=== PATIENT | male | born 1950 | race Caucasian/White ===

== ENCOUNTER 2017-01-07 13:57 | Inpatient (IN) | payer BC, MEDICARE ==
[~2017-01-07] VITALS: Ht 177.8 cm; Wt 83.9 kg
[2017-01-07] MEDS ORDERED: SOD CHLORIDE 0.9% 1,000 ML IV STA (14:39)
[2017-01-07] MEDS ORDERED: MAGNESIUM SULFATE 2 GM, MULTIVITAMINS 10 ML, THIAMINE 100 MG, FOLIC ACID 1 MG in SOD CH... IV STA (14:39)
[2017-01-07 15:03] LABS: ADD SCAN DIFF NO
--- NOTE | 2017-01-07 15:06 | RADRPT ---
PROCEDURE: XR Chest. CLINICAL INDICATION: Chest pain, altered level of consciousness TECHNIQUE: Single frontal view of the chest was obtained. COMPARISON: None FINDINGS: The heart is within normal limits. The thoracic aorta is calcified. There are mild left lower lobe linear atelectatic changes. The lungs are otherwise clear. There is no pleural effusion or pneumothorax. RPTAT: AA IMPRESSION: Mild left lower lobe linear atelectatic changes. Calcified aorta consistent with atherosclerotic disease. .Nathan Pena MD, MD Date Time Electronically viewed and signed by .Nathan Pena MD, on 01/07/2017 15:06 .S/
[2017-01-07 15:19] LABS: CHLORIDE 105 mmol/L (97-110)
[2017-01-07 15:20] LABS: ALBUMIN 3.8 g/dl (3.3-4.9); POTASSIUM 4.4 mmol/L (3.5-5.1); SODIUM 141 mmol/L (135-144)
[2017-01-07 15:21] LABS: BASOPHIL # 0.1 10^3/ul (0.0-0.1); BASOPHILS % 0.7 % (0.0-2.0); HEMATOCRIT 29.9 % (42.0-52.0); HEMOGLOBIN 10.1 g/dl (14.0-18.0); LYMPHOCYTES # 1.7 10^3/ul (0.8-2.9); LYMPHOCYTES % 21.9 % (15.0-51.0); MEAN CORPUSCULAR HEMOGLOBIN 33.4 pg (29.0-33.0); MEAN CORPUSCULAR HGB CONC 33.8 g/dl (32.0-37.0); MEAN PLATELET VOLUME 10.2 fl (7.4-10.4); MONOCYTE # 0.4 10^3/ul (0.3-0.9); MONOCYTES % 5.2 % (0.0-11.0); NEUTROPHIL # 5.4 10^3/ul (1.6-7.5); NEUTROPHILS % 71.7 % (39.0-77.0); PLATELET COUNT 374 10^3/UL (140-415); RED BLOOD COUNT 3.02 10^6/ul (4.70-6.10); RED CELL DISTRIBUTION WIDTH 13.5 % (11.5-14.5); WHITE BLOOD COUNT 7.5 10^3/ul (4.8-10.8)
[2017-01-07 15:22] LABS: ANION GAP 19 (8-16); CARBON DIOXIDE 21 mmol/L (21-31)
[2017-01-07 15:23] LABS: ALANINE AMINOTRANSFERASE 37 IU/L (13-69); ALBUMIN/GLOBULIN RATIO 1.11; ALKALINE PHOSPHATASE 169 IU/L (42-121); ASPARTATE AMINO TRANSFERASE 53 IU/L (15-46); BILIRUBIN,INDIRECT 0.2 mg/dl (0-1.1); BILIRUBIN,TOTAL 0.2 mg/dl (0.2-1.3); BLOOD UREA NITROGEN 23 mg/dl (7-20); CALCIUM 8.6 mg/dl (8.4-10.2); GLUCOSE 113 mg/dl (70-220); TOTAL PROTEIN 7.2 g/dl (6.1-8.1)
[2017-01-07 15:37] LABS: ACETAMINOPHEN < 10.0 ug/ml (10.0-30.0)
[2017-01-07 15:38] LABS: ETHANOL < 10.0 mg/dl; SALICYLATE < 1.0 mg/dl (5.0-30.0)
[2017-01-07] MEDS ORDERED: LORAZEPAM 2 MG INJ IV ONE ×3 (16:00→22:30)
[2017-01-07] MEDS ORDERED: DIAZEPAM 5 MG/ML SYG IV ONE (16:30)
[2017-01-07 16:34] LABS: ACETONE NEGATIVE (NEGATIVE)
--- NOTE | 2017-01-07 18:20 | RADRPT ---
PROCEDURE: CT brain without contrast CLINICAL INDICATION: Altered level of consciousness TECHNIQUE: A CT of the brain was performed utilizing axial sections from the skull base through th e vertex without contrast. Sagittal and coronal images were also reformatted. The exam CTDIvol = 48. 08 mGy and DLP = 773.57 mGy-cm. COMPARISON: None available FINDINGS: No acute intracranial hemorrhage is identified. There is no mass effect or midline shift. No extra -axial fluid collection is seen. The ventricles and sulci are larger in size and configuration for the patient's provided age of 66 years consistent with advanced generalized atrophy. The density of the brain is within normal limits. Scott-white differentiation is preserved with no findings to sug gest an acute ischemic infarct. The fourth ventricle is midline and there is no density alteration within the juan luis or cerebellum. M oderate atherosclerotic calcification of the vertebral and cavernous internal carotid arteries is no hayes. The osseous structures are unremarkable. The mastoid air cells and visualized paranasal sinuses are clear. RPTAT:HJJR IMPRESSION: Advanced atrophy for the patient's provided age with no evidence of acute intracranial abnormality o r findings to explain the patient's provided history. Physician Nicole Date Time Electronically viewed and signed by Physician Nicole on 01/07/2017 18:20 /
[2017-01-07] MEDS ORDERED: SOD CHLORIDE 0.9% 1,000 ML IV SCH (18:55)
[2017-01-07] MEDS ORDERED: ACETAMINOPHEN 325 MG TAB PO PRN (19:00)
[2017-01-07] MEDS ORDERED: ONDANSETRON 4 MG INJ IV PRN (19:00)
--- NOTE | 2017-01-07 19:06 | ERA ---
ER Documentation Chief Complaint Date/Time DATE: 01/07/17 TIME: 18:57 Chief Complaint EOTH INTAKE, BIB AMBULANCE, STATES DRANK "RUBBING ALCOHOL", AOX2 HPI This is a 66-year-old alcoholic has been abusing alcohol for the past 2 weeks. Apparently the patient drank a bottle of isopropyl rubbing alcohol last night finished it off this morning. The patient has been drinking 1 bottle of vodka a day for the past 2 weeks. Patient has had multiple falls. Patient is a very poor historian and history is from EMS and the family. Family states they are concerned for his safety and his alcohol abuse and are wanting him admitted for withdrawal precautions and possible placement ROS All systems reviewed and are negative except as per history of present illness. Medications Home Meds Unable to Obtain Active Prescriptions or Reported Meds Allergies Allergies: Coded Allergies: No Known Allergy (Unverified , 01/07/17) PMhx/Soc Hx Cardiac Disorders: Yes (HTN) Hx Alcohol Use: Yes Hx Substance Use: No Hx Tobacco Use: Yes Smoking Status: Current every day smoker FmHx Family History: No coronary disease Physical Exam Vitals Vital Signs Date Time Temp Pulse Resp B/P Pulse Ox O2 Delivery O2 Flow Rate FiO2 01/07/17 18:42 70 21 125/64 Room Air 01/07/17 14:07 97.6 78 18 106/53 98 Physical Exam Const: Well-developed, well-nourished Head: Right temporal scalp contusion normocephalic] Eyes: Normal Conjunctiva, PERRLA, EOMI, normal sclera, no nystagmus ENT: Normal External Ears, Nose and Mouth, moist mucus membranes. Neck: Full range of motion. No meningismus, no lymphadenopathy. Resp: Clear to auscultation bilaterally, no wheezing, rhonchi, rales Cardio: Regular rate and rhythm, no murmurs, S1 S2 present Abd: Soft, non tender x 4, non distended. Normal bowel sounds, no guarding or rebound, no pulsitile abdominal masses or bruits Skin: No petechiae or rashes, no ecchymosis , no maculopapular rash Back: No midline or flank tenderness Ext: No cyanosis, or edema, FROM x 4, normal inspection, neurovascularly intact x 4, multiple scrapes and contusions and abrasions to his knees and shins Neur: Awake and alert, STR 5/5 x 4, sensation intact x 4, no focal findings, cerebellum intact Psych: Poor historian limited cooperation patient is having outbursts of yelling and bizarre statements such as "I need to find the door" t Result Diagram: 01/07/17 1440 01/07/17 1440 Results 24 hrs Laboratory Tests Test 01/07/17 14:40 Acetaminophen Level < 10.0ug/ml Acetone Level (Chemistry) NEGATIVE Alanine Aminotransferase (ALT/SGPT) 37IU/L Albumin 3.8g/dl Albumin/Globulin Ratio 1.11 Alkaline Phosphatase 169IU/L Anion Gap 19 Aspartate Amino Transf (AST/SGOT) 53IU/L Basophils # 0.110^3/ul Basophils % 0.7% Blood Urea Nitrogen 23mg/dl Calcium Level 8.6mg/dl Carbon Dioxide Level 21mmol/L Chloride Level 105mmol/L Creatinine 1.50mg/dl Direct Bilirubin 0.00mg/dl Eosinophils # 0.010^3/ul Eosinophils % 0.0% Ethyl Alcohol Level < 10.0mg/dl Globulin 3.40g/dl Glucose Level 113mg/dl Hematocrit 29.9% Hemoglobin 10.1g/dl Indirect Bilirubin 0.2mg/dl Lymphocytes # 1.710^3/ul Lymphocytes % 21.9% Mean Corpuscular Hemoglobin 33.4pg Mean Corpuscular Hemoglobin Concent 33.8g/dl Mean Corpuscular Volume 99.0fl Mean Platelet Volume 10.2fl Monocytes # 0.410^3/ul Monocytes % 5.2% Neutrophils # 5.410^3/ul Neutrophils % 71.7% Nucleated Red Blood Cells # 0.010^3/ul Nucleated Red Blood Cells % 0.0/100WBC Platelet Count 05701^3/UL Potassium Level 4.4mmol/L Red Blood Count 3.0210^6/ul Red Cell Distribution Width 13.5% Salicylates Level < 1.0mg/dl Sodium Level 141mmol/L Total Bilirubin 0.2mg/dl Total Protein 7.2g/dl White Blood Count 7.510^3/ul Current Medications Medications (Trade) Dose Ordered Sig/Nell Route PRN Reason Start Time Stop Time Status Last Admin Dose Admin Sodium Chloride 1,000 ml @ 1,000 mls/hr Q1H STAT IV 01/07/17 14:39 01/07/17 15:38 DC 01/07/17 14:58 Magnesium Sulfate/ Multivitamins/ Thiamine HCl/ Folic Acid/Sodium Chloride (Magnesium Sulfate/Mvi Adult/ Vitamin B1/Folic Acid/NS) 1,015.2 ml @ 500 mls/ hr Q2H2M STAT IV 01/07/17 14:39 01/07/17 16:40 DC 01/07/17 15:20 Lorazepam (Ativan) 1 mg ONCE ONCE IV 01/07/17 16:00 01/07/17 16:01 DC 01/07/17 16:01 Diazepam (Valium) 5 mg ONCE ONCE IV 01/07/17 16:30 01/07/17 16:31 DC 01/07/17 16:09 Procedures/MDM PROCEDURE: CT brain without contrast CLINICAL INDICATION: Altered level of consciousness TECHNIQUE: A CT of the brain was performed utilizing axial sections from the skull base through the vertex without contrast. Sagittal and coronal images were also reformatted. The exam CTDIvol = 48.08 mGy and DLP = 773.57 mGy-cm. COMPARISON: None available FINDINGS: No acute intracranial hemorrhage is identified. There is no mass effect or midline shift. No extra-axial fluid collection is seen. The ventricles and sulci are larger in size and configuration for the patient's provided age of 66 years consistent with advanced generalized atrophy. The density of the brain is within normal limits. Scott-white differentiation is preserved with no findings to suggest an acute ischemic infarct. The fourth ventricle is midline and there is no density alteration within the juan luis or cerebellum. Moderate atherosclerotic calcification of the vertebral and cavernous internal carotid arteries is noted. The osseous structures are unremarkable. The mastoid air cells and visualized paranasal sinuses are clear. RPTAT:HJJR IMPRESSION: Advanced atrophy for the patient's provided age with no evidence of acute intracranial abnormality or findings to explain the patient's provided history. Physician Nicole Date Time Electronically viewed and signed by Physician Nicole on 01/07/2017 18:20 JR/ CC: CLAY REDDY DO PROCEDURE: XR Chest. CLINICAL INDICATION: Chest pain, altered level of consciousness TECHNIQUE: Single frontal view of the chest was obtained. COMPARISON: None FINDINGS: The heart is within normal limits. The thoracic aorta is calcified. There are mild left lower lobe linear atelectatic changes. The lungs are otherwise clear. There is no pleural effusion or pneumothorax. RPTAT: AA IMPRESSION: Mild left lower lobe linear atelectatic changes. Calcified aorta consistent with atherosclerotic disease. .Nathan Pena MD, MD Date Time Electronically viewed and signed by .Nathan Pena MD, MD on 01/07/2017 15: 06 .S/ CC: CLAY REDDY DO EKG: Rate/Rhythm: Normal sinus rhythm heart rate 73, right axis deviation QRS, ST, QT: NORMAL ID, QRS, QT] Impression: NORMAL EKG Spoke with the patient's primary care physician Dr. Finnegan and. He asked me to order a d-dimer and ammonia level. The patient had to get Ativan and Valium intravenously to calm him down. He will need to be admitted for alcohol delirium and observation for isopropyl alcohol ingestion. He is also high risk for alcohol withdrawal Departure Diagnosis: Primary Impression: Alcoholic delirium Condition: Stable CLAY REDDY DO Jan 07, 2017 19:06
[2017-01-07 21:14] LABS: D-DIMER 2647.26 ng/ml (<460)
[2017-01-08 05:34] VITALS: TEMP 97.4
[2017-01-08] MEDS ORDERED: PANTOPRAZOLE 40 MG INJ IV SCH (11:00)
[2017-01-08] MEDS: CHLORDIAZEPOXIDE 5 MG CAP PO SCH ×3 (12:30→22:08)
[2017-01-08] MEDS: THIAMINE 200 MG INJ IM SCH (12:31)
[2017-01-08] MEDS: FOLIC ACID 1 MG TAB PO SCH ×2 (12:32→21:00)
[2017-01-08] MEDS: CYANOCOBALAMIN 500 MCG TAB PO SCH (12:32)
[2017-01-08] MEDS: ENOXAPARIN 100 MG/ML SYG SC SCH (12:38)
[2017-01-08 13:22] LABS: ADD UMIC NO; URINE BILIRUBIN (Dip) NEGATIVE (NEGATIVE); URINE BLOOD (Dip) NEGATIVE (NEGATIVE); URINE COLOR LT. YELLOW (YELLOW); URINE GLUCOSE (Dip) NEGATIVE (NEGATIVE); URINE KETONES (Dip) 15 (NEGATIVE); URINE LEUKOCYTE ESTERASE (Dip) NEGATIVE (NEGATIVE); URINE NITRITE (Dip) NEGATIVE (NEGATIVE); URINE TOTAL PROTEIN (Dip) NEGATIVE (NEGATIVE); URINE UROBILINOGEN (Dip) 0.2 E.U./dL (0.1-1.0)
[2017-01-08 13:30] VITALS: BP 146/74; PULSE 74; RESP 18
[2017-01-08 13:48] LABS: BENZODIAZEPINES Positive (NEGATIVE)
[2017-01-08 14:15] LABS: BARBITURATES Negative (NEGATIVE); CANNABINOIDS Negative (NEGATIVE); COCAINE Negative (NEGATIVE); OPIATES Negative (NEGATIVE)
[2017-01-08 14:17] VITALS: Ht 177.8 cm; Wt 83.9 kg
--- NOTE | 2017-01-08 15:31 | HP ---
Date/Time of Note Date/Time of Note DATE: 01/08/17 TIME: 15:29 Assessment/Plan VTE Prophylaxis VTE Prophylaxis Intervention: anti-embolic stocking, contraindicated, LMWH VTE Contraindication Reason: peripheral vascular disease Lines/Catheters Central line still needed: Yes Urinary Cath still in place: No HPI/ROS Admit Date/Time Admit Date/Time Confusion; S/p alcohol abuse and other substance use including nicotine. PMH/Family/Social Social History Smoking Status: Current some day smoker Exam/Review of Systems Vital Signs Vitals Vital Signs Date Time Temp Pulse Resp B/P Pulse Ox O2 Delivery O2 Flow Rate FiO2 01/08/17 08:14 53 131/70 100 Room Air 01/08/17 07:00 18 01/08/17 05:34 97.4 Intake and Output 01/07/17 01/07/17 01/08/17 15:00 23:00 07:00 Intake Total 160 ml Output Total 120 ml Balance 40 ml Labs Result Diagram: 01/07/17 1440 01/07/17 1440 VEE HUNTLEY MD Jan 08, 2017 15:31
[2017-01-08] MEDS: IPRATROPIUM (NEB) 0.5 MG/2.5 ML AMP HHN SCH ×2 (15:48→21:05)
[2017-01-08] MEDS: ALBUTEROL 0.083% (NEB) 2.5 MG/3 ML AMP HHN SCH ×2 (15:49→21:05)
[2017-01-08 15:50] LABS: IRON 85 ug/dl (35-150)
[2017-01-08 15:59] LABS: TOTAL IRON BINDING CAPACITY 212 ug/dl (241-421)
[2017-01-08 19:58] VITALS: BP 191/88; RESP 20
[2017-01-08] MEDS: NICOTINE (14 MG/24 HR) PATCH TRANSDERM SCH (20:12)
[2017-01-08 20:19] VITALS: BP 160/74; PULSE 58
[2017-01-08] MEDS ORDERED: MEGE40TA PO (20:46)
[2017-01-08] MEDS ORDERED: THIA50TA10 PO (20:46)
[2017-01-08] MEDS ORDERED: TAP5 PO (20:46)
[2017-01-08] MEDS ORDERED: FOLI-49 PO (20:46)
[2017-01-08] MEDS ORDERED: PANT40TA4 PO (20:46)
[2017-01-08] MEDS ORDERED: RIFA550T4 PO (20:46)
[2017-01-08] MEDS ORDERED: MIRT15TA5 PO (20:46)
[2017-01-08] MEDS ORDERED: SPIR100T31 PO (20:46)
[2017-01-08] MEDS ORDERED: LORA1TAB PO (20:47)
[2017-01-08] MEDS ORDERED: FINA5TAB4 PO (20:47)
[2017-01-08] MEDS ORDERED: CLON1PAT TD (20:47)
[2017-01-08] MEDS ORDERED: BUDE6HFA INHALATION (20:47)
[2017-01-08] MEDS ORDERED: MIRA50TA PO (20:47)
[2017-01-08] MEDS ORDERED: OLME1TAB37 PO (20:47)
[2017-01-08] MEDS ORDERED: METO-448 PO (20:47)
[2017-01-08] MEDS ORDERED: ONDA-43 PO (20:47)
[2017-01-08] MEDS ORDERED: ASPI81TA3 PO (20:47)
[2017-01-08] MEDS ORDERED: PYRI50TA80 PO (20:47)
[2017-01-08] MEDS ORDERED: ONDANSETRON 4 MG INJ IV PRN (21:30)
[2017-01-08] MEDS: METHIMAZOLE 5 MG TAB PO SCH (21:55)
[2017-01-08] MEDS: RIFAXIMIN 550 MG TAB PO SCH (21:55)
[2017-01-08] MEDS: PYRIDOXINE 50 MG TAB PO SCH (21:55)
[2017-01-08] MEDS: SALMETEROL/FLUTICASONE 250/50 INHA INH SCH (21:56)
[2017-01-08] MEDS: AMLODIPINE 5 MG TAB PO SCH (22:06)
[2017-01-08] MEDS: ASPIRIN 81 MG TAB PO SCH (22:06)
[2017-01-08] MEDS: FINASTERIDE 5 MG TAB PO SCH (22:06)
[2017-01-08] MEDS: LISINOPRIL 5 MG TAB PO SCH (22:06)
[2017-01-08] MEDS: METOPROLOL 25 MG TAB PO SCH (22:07)
[2017-01-08] MEDS: MIRTAZAPINE 15 MG TAB PO SCH (22:07)
[2017-01-08] MEDS: MEGESTROL 40 MG TAB PO SCH (22:07)
[2017-01-08] MEDS: POTASSIUM CHLORIDE 10 MEQ in DEXTROSE 5%-0.9% NACL 1,000 ML IV SCH (22:10)
[2017-01-08] MEDS ORDERED: CLONIDINE 0.1 MG/24 HR PATCH TRANSDERM SCH (22:30)
[2017-01-09] MEDS: LORAZEPAM 1 MG TAB PO PRN ×2 (02:03→21:01)
[2017-01-09] MEDS: PANTOPRAZOLE (EC) 40 MG TAB PO SCH (06:11)
[2017-01-09 07:15] VITALS: BP 137/79; RESP 20
--- NOTE | 2017-01-09 07:21 | CONS ---
Date/Time of Note Date/Time of Note DATE: 01/09/17 TIME: 07:21 Assessment/Plan Assessment/Plan Chief Complaint/Hosp Course ANEMIA N- CYTIC WITH N RDW PT WITH HX ANEMIA MONITOR BLOOD COUNT CLOSELY OBSERVE FOR BLEEDING AND HEMOLYSIS COMPLETE ANEMIA W-UP S/P Rubber alcohol poisoning COPD exacerbation Sleeplessness HTN out of control ALD S/P multiple falls with current fall and facial and kne injuries and bruises DYslipidemia Postcuncussion syndrome Nicotine addiction BPH AD with MD LBP Confabulations Weight loss Hearing impairment Multi[ple body abrasions and hematomas GERD Hx of pancreatitis Elevated D-dimer Problems: Consultation Date/Type/Reason Admit Date/Time Jan 07, 2017 at 18:56 Initial Consult Date 01.07.17 Type of Consultation: HEMEONC Reason for Consultation ANEMIA Referring Provider: VEE HUNTLEY MD 24 HR Interval Summary Free Text/Dictation ALL NOTED NO NEW EVENTS NO BLEEDING Exam/Review of Systems Vital Signs Vitals Vital Signs Date Time Temp Pulse Resp B/P Pulse Ox O2 Delivery O2 Flow Rate FiO2 01/08/17 21:06 73 18 97 21 01/08/17 20:19 160/74 01/08/17 19:58 97.8 01/08/17 13:30 Room Air Intake and Output 01/08/17 01/08/17 01/09/17 15:00 23:00 07:00 Intake Total 300 ml 400 ml 960 ml Output Total 500 ml 200 ml Balance -200 ml 400 ml 760 ml Exam Const: Well-developed, well-nourished Head: Right temporal scalp contusion normocephalic] Eyes: Normal Conjunctiva, PERRLA, EOMI, normal sclera, no nystagmus ENT: Normal External Ears, Nose and Mouth, moist mucus membranes. Neck: Full range of motion. No meningismus, no lymphadenopathy. Resp: Clear to auscultation bilaterally, no wheezing, rhonchi, rales Cardio: Regular rate and rhythm, no murmurs, S1 S2 present Abd: Soft, non tender x 4, non distended. Normal bowel sounds, no guarding or rebound, no pulsitile abdominal masses or bruits Skin: No petechiae or rashes, no ecchymosis , no maculopapular rash Back: No midline or flank tenderness Ext: No cyanosis, or edema, FROM x 4, normal inspection, neurovascularly intact x 4, multiple scrapes and contusions and abrasions to his knees and shins Neur: Awake and alert, STR 5/5 x 4, sensation intact x 4, no focal findings, cerebellum intact Results Result Diagram: 01/07/17 1440 01/07/17 1440 Results 24 hrs Laboratory Tests Test 01/08/17 11:10 01/08/17 12:40 Ammonia < 9 L Iron Level 85 Magnesium Level 2.2 Percent Iron Saturation 40 Total Iron Binding Capacity 212 L Urine Bilirubin NEGATIVE Urine Clarity CLEAR Urine Color LT. YELLOW Urine Glucose NEGATIVE Urine Hemoglobin NEGATIVE Urine Ketones 15 Urine Leukocyte Esterase NEGATIVE Urine Nitrite NEGATIVE Urine Specific [place] 1.020 Urine Total Protein NEGATIVE Urine Urobilinogen 0.2 E.U./dL Urine pH 6.0 Medications Medications Current Medications Thiamine HCl (Vitamin B1) 100 mg DAILY IM Last administered on 01/08/17 12:31 ; Admin Dose 100 MG; Start 01/08/17 at 11:00 Folic Acid (Folic Acid) 1 mg DAILY PO Last administered on 01/08/17 12:32; Admin Dose 1 MG; Start 01/08/17 at 11:00 Cyanocobalamin (Vitamin B12) 500 mcg DAILY PO Last administered on 01/08/17 12 :32; Admin Dose 500 MCG; Start 01/08/17 at 11:00 Enoxaparin Sodium (Lovenox) 90 mg Q24H SC Last administered on 01/08/17 12:38 ; Admin Dose 90 MG; Start 01/08/17 at 11:00 Nicotine 1 patch 1 patch DAILY TRANSDERM Last administered on 01/08/17 20:12; Admin Dose 1 PATCH; Start 01/08/17 at 21:00 Potassium Chloride/Dextrose/ Sodium Chloride (KCl/D5-NS) 1,005 ml @ 80 mls/hr [id number] IV Last administered on 01/08/17 22:10; Admin Dose 80 MLS/HR; Start at 21:00 Aspirin (Aspirin) 81 mg DAILY PO Last administered on 01/08/17 22:06; Admin Dose 81 MG; Start 01/08/17 at 21:00 Clonidine HCl (Catapres-Tts 1 Patch) 0.1 patch Q7D TRANSDERM Last administered on 01/08/17 21:56; Admin Dose 0.1 PATCH; Start 01/08/17 at 22:30 Finasteride (Proscar) 5 mg DAILY PO Last administered on 01/08/17 22:06; Admin Dose 5 MG; Start 01/08/17 at 21:00 Folic Acid (Folic Acid) 1 mg DAILY PO ; Start 01/08/17 at 21:00 Megestrol Acetate (Megace) 40 mg TID PO Last administered on 01/08/17 22:07; Admin Dose 40 MG; Start 01/08/17 at 21:00 Methimazole (Tapazole) 5 mg BID PO Last administered on 01/08/17 21:55; Admin Dose 5 MG; Start 01/08/17 at 21:00 Metoprolol Tartrate (Lopressor) 25 mg BID PO Last administered on 01/08/17 22: 07; Admin Dose 25 MG; Start 01/08/17 at 21:00 Mirtazapine (Remeron) 15 mg HS PO Last administered on 01/08/17 22:07; Admin Dose 15 MG; Start 01/08/17 at 21:00 Pantoprazole (Protonix Tab) 40 mg DAILY@06 PO Last administered on 01/09/17 06 :11; Admin Dose 40 MG; Start 01/09/17 at 06:00 Pyridoxine HCl (Vitamin B6) 50 mg DAILY PO Last administered on 01/08/17 21:55 ; Admin Dose 50 MG; Start 01/08/17 at 22:30 Rifaximin (Xifaxan) 550 mg BID PO Last administered on 01/08/17 21:55; Admin Dose 550 MG; Start 01/08/17 at 22:30 Salmeterol Xinafoate/ Fluticasone (Advair 250/50 Diskus) 1 inh BID INH Last administered on 01/08/17 21:56; Admin Dose 1 INH; Start 01/08/17 at 22:30 Chlordiazepoxide (Librium) 5 mg DAILY PO ; Start 01/09/17 at 09:00 Chlordiazepoxide (Librium) 10 mg HS PO Last administered on 01/08/17 22:08; Admin Dose 10 MG; Start 01/08/17 at 22:00 Non-Formulary Medication 50 ea DAILY PO ; Start 01/09/17 at 09:00; Status UNV Lorazepam (Ativan) 1 mg Q6H PRN PO ANXIETY Last administered on 01/09/17 02:03 ; Admin Dose 1 MG; Start 01/08/17 at 21:30 Ondansetron HCl (Zofran Inj) 4 mg Q8 PRN IV NAUSEA AND/OR VOMITING; Start 01/08 at 21:30 Amlodipine Besylate (Norvasc) 5 mg BID PO Last administered on 01/08/17 22:06 ; Admin Dose 5 MG; Start 01/08/17 at 21:30 Lisinopril (Zestril) 2.5 mg BID PO Last administered on 01/08/17 22:06; Admin Dose 2.5 MG; Start 01/08/17 at 21:30 CLIFTON OVIEDO MD Jan 09, 2017 07:21
[2017-01-09] MEDS: IPRATROPIUM (NEB) 0.5 MG/2.5 ML AMP HHN SCH ×3 (08:59→21:56)
[2017-01-09] MEDS: ALBUTEROL 0.083% (NEB) 2.5 MG/3 ML AMP HHN SCH ×3 (08:59→21:56)
[2017-01-09] MEDS: METHIMAZOLE 5 MG TAB PO SCH ×2 (09:00→19:54)
[2017-01-09] MEDS ORDERED: SPECIAL NON-STANDARD MEDICATION PO SCH (09:00)
[2017-01-09] MEDS: SALMETEROL/FLUTICASONE 250/50 INHA INH SCH ×2 (09:00→19:53)
[2017-01-09] MEDS: FOLIC ACID 1 MG TAB PO SCH ×2 (09:00→09:34)
--- NOTE | 2017-01-09 09:06 | PN ---
Date/Time of Note Date/Time of Note DATE: 01/09/17 TIME: 09:00 Assessment/Plan VTE Prophylaxis VTE Prophylaxis Intervention: ambulation, anti-embolic stocking, contraindicated VTE Contraindication Reason: peripheral vascular disease Lines/Catheters IV Catheter Type (from Nrsg): Peripheral IV Central line still needed: No Urinary Cath still in place: No Reason Cath still needed: urinary retention Assessment/Plan Assessment/Plan 1.S/P Rubber alcohol poisoning-improving. 2.COPD exacerbation-improving. 3.Sleeplessness-improving. 4.HTN out of control-improving. 5.ALD-improving. 6.S/P multiple falls with current fall and facial and kne injuries and bruises 7.DYslipidemia 8.Postcuncussion syndrome-stable. 9. Nicotine addiction 10.BPH--improving. 11.AD with MD 12.LBP 13.Confabulations 14.Weight losss 15.Hearing impairment 16.Multi[ple body abrasions and hematomas 17. Post concussion syndrome 18.YEISON 19.Hx of pancreatitis 20. Elevated D-dimer 21.Anemia of chronic disease with low iron and low vitamins and magnesium. Cont'd Hospitalization Reason: management of above problems with gate training. Subjective 24 Hr Interval Summary Free Text/Dictation I want to go home. Subjective hx not possible: pt critical Constitutional: chills, diaphoresis, disoriented, improved, poor po, requiring IVF, requiring O2, No febrile, No no complaints, No other Eyes: pain, redness, visual change, No discharge, No no complaints, No other ENT: congestion, dysphagia, sore throat, No bleeding, No discharge, No no complaints, No other, No pain Respiratory: cough, pain, shortness of breath, sputum, wheezing, No no complaints, No other, No pleuritic pain Cardiovascular: chest pain, lightheadedness, orthopenea, palpitations, paroxysmal nocturnal dyspnea, No edema, No no complaints, No other Gastrointestinal: diarrhea, flatus, nausea, pain, passing stool, No blood, No constipation, No decreased appetite, No no complaints, No other , No vomiting Genitourinary: dysuria, flank pain, No bleeding, No discharge, No hematuria, No no complaints, No other Musculoskeletal: back pain, bone/joint pain, neck pain, other (wounds and abrasions of the knees and face are healing slowly.), restricted range of motion, No no complaints, No swelling Skin: erythema, laceration, pruritis, rash, skin lesions, No bruising, No no complaints, No other Neurologic: confusion, dizziness, headache, No focal-weakness, No no complaints, No other, No seizure, No syncope Endocrine: dry skin, polydypsia, No no complaints, No other, No polyuria, No temp intolerance Lymphatic: No adenopathy, No lymphadema, No no complaints, No other, No tender nodes Psychological: anxiety, confusion, depression, No nl mood/affect, No no complaints, No other, No suicidal Exam/Review of Systems Vital Signs Vitals Vital Signs Date Time Temp Pulse Resp B/P Pulse Ox O2 Delivery O2 Flow Rate FiO2 01/09/17 07:15 97.9 60 20 137/79 98 01/08/17 21:06 21 01/08/17 13:30 Room Air Intake and Output 01/08/17 01/08/17 01/09/17 15:00 23:00 07:00 Intake Total 300 ml 400 ml 960 ml Output Total 500 ml 200 ml Balance -200 ml 400 ml 760 ml Exam Constitutional: alert, distress, obese, oriented (place and people not in time.), well developed, No frail, No non-verbal, No other Psych: anxiety, confusion, depression, No nl mood/affect, No no complaints, No other, No suicidal Eyes: EOMI, PERRL, icteric (no.), nl lids ENMT: nl external ears & nose, tympanic membranes, No intubated, No mucosa pink and moist, No nl lips & teeth, No nl nasal mucosa & septum, No other Neck: bruits, jvd, nuchal rigidity, No masses, No non-tender, No other, No supple, No thyromegaly Respiratory: congested cough, diminished breath sounds, labored breathing, normal air movement, wheezing, No clear to auscultation, No crackles/rales, No intercostal retraction, No other, No respirations, No tactile fremitus Cardiovascular: bruits, irregular rhythm, jugular venous distention (JVD), systolic murmur, No S3, No S4, No diastolic murmur, No edema, No gallop, No murmurs/extra sounds, No nl pulses, No other, No regular rate and rhythm, No rub Gastrointestinal: bowel sounds, distended, nl liver, spleen, soft, No ascites, No firm, No hepatomegaly, No mass, No non-tender, No other, No rebound or guarding, No splenomegaly, No surgical scars, No tender Genitourinary - Male: CVA tenderness, nl penis, nl scrotum, No discharge, No other Musculoskeletal: joint tenderness Extremities: calf tenderness, tenderness Neurological: [employer] II-XII intact (decreasedd hearing.Left facial swelling persists.), confused, lethargic, numbness Skin: diaphoresis, ecchymosis, laceration, nl turgor (decreased.), puncture, rash or lesions (with multiple abrasions.) Results Result Diagram: 01/07/17 1440 01/07/17 1440 Results 24 hrs Laboratory Tests Test 01/08/17 11:10 01/08/17 12:40 01/09/17 07:53 Ammonia < 9 L Iron Level 85 Magnesium Level 2.2 Percent Iron Saturation 40 Total Iron Binding Capacity 212 L Urine Bilirubin NEGATIVE Urine Clarity CLEAR Urine Color LT. YELLOW Urine Glucose NEGATIVE Urine Hemoglobin NEGATIVE Urine Ketones 15 Urine Leukocyte Esterase NEGATIVE Urine Nitrite NEGATIVE Urine Specific [place] 1.020 Urine Total Protein NEGATIVE Urine Urobilinogen 0.2 E.U./dL Urine pH 6.0 Bedside Glucose 116 Medications Medications Current Medications Thiamine HCl (Vitamin B1) 100 mg DAILY IM Last administered on 01/08/17 12:31 ; Admin Dose 100 MG; Start 01/08/17 at 11:00 Folic Acid (Folic Acid) 1 mg DAILY PO Last administered on 01/08/17 12:32; Admin Dose 1 MG; Start 01/08/17 at 11:00 Cyanocobalamin (Vitamin B12) 500 mcg DAILY PO Last administered on 01/08/17 12 :32; Admin Dose 500 MCG; Start 01/08/17 at 11:00 Enoxaparin Sodium (Lovenox) 90 mg Q24H SC Last administered on 01/08/17 12:38 ; Admin Dose 90 MG; Start 01/08/17 at 11:00 Nicotine 1 patch 1 patch DAILY TRANSDERM Last administered on 01/08/17 20:12; Admin Dose 1 PATCH; Start 01/08/17 at 21:00 Potassium Chloride/Dextrose/ Sodium Chloride (KCl/D5-NS) 1,005 ml @ 80 mls/hr [id number] IV Last administered on 01/08/17 22:10; Admin Dose 80 MLS/HR; Start at 21:00 Aspirin (Aspirin) 81 mg DAILY PO Last administered on 01/08/17 22:06; Admin Dose 81 MG; Start 01/08/17 at 21:00 Clonidine HCl (Catapres-Tts 1 Patch) 0.1 patch Q7D TRANSDERM Last administered on 01/08/17 21:56; Admin Dose 0.1 PATCH; Start 01/08/17 at 22:30 Finasteride (Proscar) 5 mg DAILY PO Last administered on 01/08/17 22:06; Admin Dose 5 MG; Start 01/08/17 at 21:00 Folic Acid (Folic Acid) 1 mg DAILY PO ; Start 01/08/17 at 21:00 Megestrol Acetate (Megace) 40 mg TID PO Last administered on 01/08/17 22:07; Admin Dose 40 MG; Start 01/08/17 at 21:00 Methimazole (Tapazole) 5 mg BID PO Last administered on 01/08/17 21:55; Admin Dose 5 MG; Start 01/08/17 at 21:00 Metoprolol Tartrate (Lopressor) 25 mg BID PO Last administered on 01/08/17 22: 07; Admin Dose 25 MG; Start 01/08/17 at 21:00 Mirtazapine (Remeron) 15 mg HS PO Last administered on 01/08/17 22:07; Admin Dose 15 MG; Start 01/08/17 at 21:00 Pantoprazole (Protonix Tab) 40 mg DAILY@06 PO Last administered on 01/09/17 06 :11; Admin Dose 40 MG; Start 01/09/17 at 06:00 Pyridoxine HCl (Vitamin B6) 50 mg DAILY PO Last administered on 01/08/17 21:55 ; Admin Dose 50 MG; Start 01/08/17 at 22:30 Rifaximin (Xifaxan) 550 mg BID PO Last administered on 01/08/17 21:55; Admin Dose 550 MG; Start 01/08/17 at 22:30 Salmeterol Xinafoate/ Fluticasone (Advair 250/50 Diskus) 1 inh BID INH Last administered on 01/08/17 21:56; Admin Dose 1 INH; Start 01/08/17 at 22:30 Chlordiazepoxide (Librium) 5 mg DAILY PO ; Start 01/09/17 at 09:00 Chlordiazepoxide (Librium) 10 mg HS PO Last administered on 01/08/17 22:08; Admin Dose 10 MG; Start 01/08/17 at 22:00 Non-Formulary Medication 50 ea DAILY PO ; Start 01/09/17 at 09:00; Status UNV Lorazepam (Ativan) 1 mg Q6H PRN PO ANXIETY Last administered on 01/09/17 02:03 ; Admin Dose 1 MG; Start 01/08/17 at 21:30 Ondansetron HCl (Zofran Inj) 4 mg Q8 PRN IV NAUSEA AND/OR VOMITING; Start 01/08 at 21:30 Amlodipine Besylate (Norvasc) 5 mg BID PO Last administered on 01/08/17 22:06 ; Admin Dose 5 MG; Start 01/08/17 at 21:30 Lisinopril (Zestril) 2.5 mg BID PO Last administered on 01/08/17 22:06; Admin Dose 2.5 MG; Start 01/08/17 at 21:30 VEE HUNTLEY MD Jan 09, 2017 09:06
[2017-01-09] MEDS: MEGESTROL 40 MG TAB PO SCH ×3 (09:34→19:55)
[2017-01-09] MEDS: RIFAXIMIN 550 MG TAB PO SCH ×2 (09:34→19:54)
[2017-01-09] MEDS: ASPIRIN 81 MG TAB PO SCH (09:34)
[2017-01-09] MEDS: PYRIDOXINE 50 MG TAB PO SCH (09:34)
[2017-01-09] MEDS: NICOTINE (14 MG/24 HR) PATCH TRANSDERM SCH (09:35)
[2017-01-09] MEDS: CHLORDIAZEPOXIDE 5 MG CAP PO SCH ×2 (09:35→19:54)
[2017-01-09] MEDS: CYANOCOBALAMIN 500 MCG TAB PO SCH (09:35)
[2017-01-09] MEDS: FINASTERIDE 5 MG TAB PO SCH (09:35)
[2017-01-09] MEDS: LISINOPRIL 5 MG TAB PO SCH ×2 (09:39→19:54)
[2017-01-09] MEDS: METOPROLOL 25 MG TAB PO SCH ×2 (09:39→21:02)
[2017-01-09] MEDS: AMLODIPINE 5 MG TAB PO SCH ×2 (09:40→19:55)
--- NOTE | 2017-01-09 09:44 | RADRPT ---
PROCEDURE: XR Shoulder. CLINICAL INDICATION: Right shoulder pain. TECHNIQUE: 3 views of the right shoulder were obtained. COMPARISON: None FINDINGS: No acute fracture or dislocation is seen. Narrowing of the acromiohumeral distance is seen. Spurrin g of the greater tuberosity is seen. The glenohumeral and acromioclavicular joints arewithin normal limits. The osseous structures are well mineralized. The soft tissue structures are intact. The v isualized portions of the right clavicle and chest appear unremarkable. IMPRESSION: 1. No acute fracture or dislocation. 2. Narrowing of the acromiohumeral distance consistent with a chronic rotator cuff tear. RPTAT: HPNM Physician Flaco Date Time Electronically viewed and signed by Physician Flaco on 01/09/2017 09:43 /
[2017-01-09 10:41] LABS: ADD SCAN DIFF NO
[2017-01-09 10:54] LABS: BASOPHIL # 0.1 10^3/ul (0.0-0.1); EOSINOPHILS # 0.1 10^3/ul (0.0-0.5); HEMATOCRIT 27.1 % (42.0-52.0); HEMOGLOBIN 8.8 g/dl (14.0-18.0); LYMPHOCYTES # 2.1 10^3/ul (0.8-2.9); LYMPHOCYTES % 40.7 % (15.0-51.0); MEAN CORPUSCULAR HEMOGLOBIN 33.2 pg (29.0-33.0); MEAN CORPUSCULAR HGB CONC 32.5 g/dl (32.0-37.0); MEAN CORPUSCULAR VOLUME 102.3 fl (82.0-101.0); MEAN PLATELET VOLUME 10.4 fl (7.4-10.4); MONOCYTE # 0.5 10^3/ul (0.3-0.9); MONOCYTES % 9.3 % (0.0-11.0); NEUTROPHIL # 2.5 10^3/ul (1.6-7.5); NEUTROPHILS % 47.6 % (39.0-77.0); PLATELET COUNT 258 10^3/UL (140-415); RED BLOOD COUNT 2.65 10^6/ul (4.70-6.10); RED CELL DISTRIBUTION WIDTH 13.5 % (11.5-14.5); WHITE BLOOD COUNT 5.3 10^3/ul (4.8-10.8)
[2017-01-09 10:57] LABS: URIC ACID 6.6 mg/dl (3.1-7.9)
[2017-01-09 10:58] LABS: POTASSIUM 3.9 mmol/L (3.5-5.1)
[2017-01-09 11:00] LABS: CREATININE 1.05 mg/dl (0.61-1.24)
[2017-01-09 11:01] LABS: BILIRUBIN,INDIRECT 0.4 mg/dl (0-1.1); BILIRUBIN,TOTAL 0.4 mg/dl (0.2-1.3); CALCIUM 8.9 mg/dl (8.4-10.2)
[2017-01-09 11:29] LABS: CARCINOEMBRYONIC ANTIGEN 7.6 ng/ml (0.0-5.0)
[2017-01-09 12:04] LABS: FOLATE 13.1 ng/ml (2.8-20.0)
[2017-01-09] MEDS: THIAMINE 200 MG INJ IM SCH (12:14)
[2017-01-09] MEDS: ENOXAPARIN 100 MG/ML SYG SC SCH (12:19)
[2017-01-09] MEDS: POTASSIUM CHLORIDE 10 MEQ in DEXTROSE 5%-0.9% NACL 1,000 ML IV SCH ×2 (12:27→22:08)
[2017-01-09 12:32] LABS: D-DIMER 1911.87 ng/ml (<460)
[2017-01-09 13:03] LABS: THYROID STIMULATING HORMONE 0.636 MIU/L (0.465-4.680)
[2017-01-09] MEDS: MIRTAZAPINE 15 MG TAB PO SCH (19:55)
[2017-01-09 22:06] VITALS: BP 163/74; RESP 18
[2017-01-10] VITALS: BP 158/74; PULSE 75
[2017-01-10] MEDS: PANTOPRAZOLE (EC) 40 MG TAB PO SCH (06:32)
[2017-01-10] MEDS: IPRATROPIUM (NEB) 0.5 MG/2.5 ML AMP HHN SCH (08:00)
[2017-01-10] MEDS: ALBUTEROL 0.083% (NEB) 2.5 MG/3 ML AMP HHN SCH (08:00)
[2017-01-10] MEDS: FOLIC ACID 1 MG TAB PO SCH ×2 (09:00→09:28)
[2017-01-10] MEDS: THIAMINE 200 MG INJ IM SCH (09:00)
[2017-01-10] MEDS: SALMETEROL/FLUTICASONE 250/50 INHA INH SCH ×2 (09:00→10:59)
[2017-01-10 09:06] VITALS: BP 115/73; RESP 18
[2017-01-10] MEDS: ASPIRIN 81 MG TAB PO SCH (09:26)
[2017-01-10] MEDS: FINASTERIDE 5 MG TAB PO SCH (09:26)
[2017-01-10] MEDS: PYRIDOXINE 50 MG TAB PO SCH (09:26)
[2017-01-10] MEDS: METHIMAZOLE 5 MG TAB PO SCH (09:27)
[2017-01-10] MEDS: MEGESTROL 40 MG TAB PO SCH ×2 (09:27→13:00)
[2017-01-10] MEDS: RIFAXIMIN 550 MG TAB PO SCH (09:27)
[2017-01-10] MEDS: CHLORDIAZEPOXIDE 5 MG CAP PO SCH (09:27)
[2017-01-10] MEDS: CYANOCOBALAMIN 500 MCG TAB PO SCH (09:27)
[2017-01-10] MEDS: NICOTINE (14 MG/24 HR) PATCH TRANSDERM SCH (09:28)
[2017-01-10] MEDS: LISINOPRIL 5 MG TAB PO SCH (09:30)
[2017-01-10] MEDS: METOPROLOL 25 MG TAB PO SCH (09:30)
[2017-01-10] MEDS: AMLODIPINE 5 MG TAB PO SCH (09:31)
[2017-01-10] MEDS: POTASSIUM CHLORIDE 10 MEQ in DEXTROSE 5%-0.9% NACL 1,000 ML IV SCH (10:42)
[2017-01-10] MEDS: ENOXAPARIN 100 MG/ML SYG SC SCH (11:02)
--- NOTE | 2017-01-10 12:45 | PDOCDIS ---
Discharge Instructions CONDITION Patient Condition: Guarded HOME CARE INSTRUCTIONS: Diet Instructions: Low Fat /CholesterolSpecial Diet: 1800 Ca ADA ACTIVITY: Activity Restrictions: Slowly Increase Activity FOLLOW UP/APPOINTMENTS Appointments 01/12/2017 to . SCHOOL/WORK RELEASE May return to School/Work with: bed rest. VEE HUNTLEY MD Jan 10, 2017 12:45
--- NOTE | 2017-01-10 12:51 | DS ---
Date/Time of Note Date/Time of Note DATE: 01/10/17 TIME: 12:46 Discharge Summary Admission/Discharge Info Admit Date/Time Jan 09, 2017 at 13:35 Discharge Date/Time Final Diagnosis 1.S/P Rubber alcohol poisoning 2.COPD exacerbation 3.Sleeplessness 4.HTN out of control 5.ALD 6.S/P multiple falls with current fall and facial and kne injuries and bruises 7.DYslipidemia 8.Postcuncussion syndrome 9. Nicotine addiction 10.BPH 11.AD with MD 12.LBP 13.Confabulations 14.Weight losss 15.Hearing impairment 16.Multi[ple body abrasions and hematomas 17. Post concussion syndrome 18.YEISON 19.Hx of pancreatitis 20. Elevated D-dimer Hospital Course After the management of "rubber alcohol intake" and alcohol related issues with hydration will be more aggressive with the help of a family to organize AA participation and detoxification. Follw up for elevated CEA and malnurishment with SR classes and coordination of care. Home Meds Reported Medications Clonidine (CLONIDINE) 1 Each Patch.tdwk, 1 PATCH.WK TD Q7D, #4 PATCH.WK 01/08/17 Budesonide-Formoterol Fumarate* (Symbicort*) 160-4.5 Hfa.aer.ad, 1 PUFF INHALATION BID, #1 EACH 01/08/17 Metoprolol Tartrate* (Lopressor*) 25 Mg Tab, 25 MG PO BID, #60 TAB 01/08/17 Aspirin (Aspirin) 81 Mg Chew, 81 MG PO DAILY, TAB.CHEW 01/08/17 Pyridoxine Hcl (Vitamin B6) 50 Mg Tab, 50 MG PO DAILY, TAB 01/08/17 Jrqyskobvu-Pbzofrslam-AAAZ (Tribenzor) 40-10-25 Mg Tablet, 1 TAB PO DAILY, TAB 01/08/17 Finasteride* (Finasteride*) 5 Mg Tablet, 5 MG PO DAILY, TAB 01/08/17 Rifaximin* (Xifaxan*) 550 Mg Tablet, 550 MG PO BID, TAB 01/08/17 Spironolactone* (Spironolactone*) 100 Mg Tablet, 25 MG PO DAILY, TAB 01/08/17 Thiamine* (Vitamin B-1*) 50 Mg Tablet, 50 MG PO DAILY, TAB 01/08/17 Methimazole* (Methimazole*) 5 Mg Tablet, 5 MG PO BID, TAB 01/08/17 Megestrol Acetate* (Megace*) 40 Mg Tab, 40 MG PO TID, TAB 01/08/17 Pantoprazole* (Pantoprazole*) 40 Mg Tablet.dr, 40 MG PO AC BREAKFAST, TAB 01/08/17 Folic Acid* (Folic Acid*) 1 Mg Tablet, 1 MG PO DAILY, TAB 01/08/17 Mirtazapine* (Mirtazapine*) 15 Mg Tablet, 15 MG PO HS, TAB 01/08/17 Discontinued Reported Medications Mirabegron (Myrbetriq) 50 Mg Tab.er.24h, 25 MG PO DAILY, TAB 01/08/17 Ondansetron Hcl* (Zofran*) 4 Mg Tab, 4 MG PO Q4H Y for NAUSEA AND OR VOMITING, TAB 01/08/17 Lorazepam* (Lorazepam*) 1 Mg Tablet, 1 MG PO Q8 Y for AGITATION/ANXIETY, #60 TAB 01/08/17 Pending Labs Laboratory Tests Test 01/09/17 17:33 Bedside Glucose 115mg/dL (70-220) VEE HUNTLEY MD Jan 10, 2017 12:51
--- NOTE | 2017-01-10 18:02 | HP ---
DATE OF ADMISSION: 01/09/2017 ADDENDUM: History and Physical which was incomplete so far, after reviewing all of his chart and the previous admission in the [facility]. CHIEF COMPLAINT: Status post fall with loss of consciousness. HISTORY OF PRESENT CONDITION: This 66-year-old white male who had so-called rubbing alcohol ingestion about 24 hours ago after family tried to destroy 5 bottles of alcohol, which he bought from the market, under the sign of protest, he took just first bottle which he saw. Later he realized that it was rubbing alcohol and now he regrets that he did that. According to family, he continues to drink, although they organized a meeting with psychiatrist and detoxification clinic. The patient came to the office also after being hospitalized in [facility] from February 2017 to July 2017 where he had withdrawal from alcohol symptoms. This admission a CT of the head was done, no CVA although patient had a fall at home with hematoma of the left frontal periorbital and cheek area along with multiple wounds over the knees and extremities. Laboratory workup was positive for anemia and positive D-dimer. CURRENT MEDICATIONS: 1. Aricept 10 daily. 2. Namenda 10 daily. 3. Vasotec 10 daily. 4. Hyzaar 50/25 daily. 5. Multivitamins were B1, B6, B12 along with vitamin D 50,000 units. 6. Wellbutrin 150 daily. 7. Ativan 1 mg q.8h. 8. Metoprolol 50 mg q. 12. 9. Flomax 0.4. 10. Proscar 0.6 mg. 11. He is on multiple inhalers, albuterol, Atrovent, Advair. ALLERGIES: NO KNOWN DRUG ALLERGIES. PAST MEDICAL HISTORY, FAMILY HISTORY, SOCIAL HISTORY: Unable to obtain from the patient due to mental status now, but his previous history includes the followin. Status post recurrent falls recently at home. I made an office visit for him. 2. Status post recent or frequent syncopal episodes with head trauma from post- concussion syndrome. He does not remember what happened. 3. Status post periorbital hematomas just a month ago and now. 4. Benign prostatic hypertrophy. 5. Hypertension. 6. Alcoholic liver disease. 7. Dyslipidemia. 8. Nicotine addiction. 9. Chronic obstructive pulmonary disease with exacerbations. 10. Obesity. 11. Snoring. 12. Osteoporosis. 13. Osteoarthritis. 14. Memory impairment. 15. Major depression. 16. Sinusitis. 17. Nasal septal deviation 18. Neck pain. 19. Back pain. 20. Dizziness. 21. Nausea, vomiting with diarrhea. REVIEW OF SYSTEMS: Positive for chills. He denies having a fever. Positive for progressive weight loss, about 15 pounds in the last 6 months. He gained about 2 pounds after previous hospitalization, but now again he is losing because according to him he drinks about 750 mL of water a day. Amount he drank of so- called rubbing alcohol, was about 300 mL. Denies melena, denies hematochezia, denies hematuria. Positive for nocturia x3 to 4. Positive for nausea, positive for vomiting. Positive for memory impairment and creating stories to fill the gap of memory. Denies itching. Positive for multiple wounds of the knees and cheek left side and left frontotemporal area. SKIN: Multiple abrasions other parts of the body, back, knees, tibial areas with scratches. Denies having got urine. He is not following. Positive for heavy smoker. Positive for blaming everybody on and off. He is having a good day. Positive for hemorrhoids, they are not bleeding. VITAL SIGNS: Emergency room, blood pressure went to 190/88, heart rate 62, respiratory rate 20. GENERAL: Well-developed, well-nourished. HEENT: Normocephalic. Status post tremors with a quarter size abrasion over the left frontotemporal area along with cheek with swollen periorbital area on the left. Positive for painful occipital area and temporal areas bilaterally. NECK: Slightly stiff. Trachea midline. Thyroid is not enlarged in a 30-degree head-up position. No JVD was detected. Pupils are equal, reactive to light. Extraocular muscles are intact. Positive for erythematous conjunctivae. Nasal septal deviation to the left. Positive for discharge. Positive for poor hygiene with some hyperpigmentation. There is no hyperpigmentation. Oral mucosa intact. Reflexes normal. No masses in the oral cavity. LUNGS: Occasional rhonchi, no wheezing. HEART: S1, S2, no S3. PMI in the 6th intercostal space 2 cm left of the midclavicular line. S1, S2. No S3. ABDOMEN: Obese but weak abdominal wall with mild painfulness in the epigastric region with mild rebound. No ascitic fluid was detected. Liver edge about 1 to 2 cm coming below the costal margin. GENITOURINARY: Positive for edematous changes in the inguinal area. No hernias were detected. Externally there are 2 hemorrhoids. RECTAL: Refused rectal examination. EXTREMITIES: Positive for multiple abrasions of the lower extremities. Arterial dorsalis pedis 2+. Positive for right more than left-sided olecranon bursal swelling, right more than left side with fluid accumulation. NEUROLOGIC: Cranial nerves II through XII within normal limits except for decreased hearing, cranial nerve 8. Face is slightly asymmetric due to swelling of the left side, able to close eyes, able to smile, able to show teeth, able to protrude tongue which is on the midline. His distal muscles are atrophied and the sensation is decreased. Gait was not checked due to his current status. ASSESSMENT AND PLAN 1. Intoxication with rubbing alcohol. Continue following. 2. Status post fall with loss of consciousness. CT negative. Will perform an MRI. 3. History of postconcussion syndrome in the past, now another episode as above. 4. Alcohol withdrawal. We will follow the algorithm of treatment of alcohol withdrawal. 5. Chronic obstructive pulmonary disease exacerbation. Follow the algorithm. 6. History of low magnesium and low iron level. Continue supplementation. 7. Status post recurrent fall with multiple abrasions. 8. Osteoporosis. 9. Osteoarthritis. 10. Alcoholic liver disease. 11. Nicotine addiction. 12. History of having elevated liver enzymes. 13. Memory impairment. 14. Major depression. 15. No suicidal ideations or tendencies. 16. History of possible peptic ulcer disease. 17. Will be followed by manager terminal. 18. Olecranon bursitis bilaterally. 19. Significant weight loss. Dictated By: VEE BRISENO/LYLE Conf#: [id number] DID#: [id number] MTDD
--- NOTE | 2017-01-10 19:03 | CONS ---
Date/Time of Note Date/Time of Note DATE: 01/07/17 TIME: 18:55 VK LE Assessment/Plan Assessment/Plan Chief Complaint/Hosp Course ANEMIA N- CYTIC WITH N RDW PT WITH HX ANEMIA MONITOR BLOOD COUNT CLOSELY OBSERVE FOR BLEEDING AND HEMOLYSIS COMPLETE ANEMIA W-UP S/P Rubber alcohol poisoning COPD exacerbation Sleeplessness HTN out of control ALD S/P multiple falls with current fall and facial and kne injuries and bruises DYslipidemia Postcuncussion syndrome Nicotine addiction BPH AD with LBP Confabulations Weight loss Hearing impairment Multi[ple body abrasions and hematomas GERD Hx of pancreatitis Elevated D-dimer Problems: Consultation Date/Type/Reason Admit Date/Time Jan 07, 2017 at 18:56 Date of Consultation: Jan 07, 2017 Type of Consultation: hemeonc Reason for Consultation anemia Referring Provider: VEE HUNTLEY MD Hx of Present Illness This is a 66-year-old alcoholic has been abusing alcohol for the past 2 weeks. Apparently the patient drank a bottle of isopropyl rubbing alcohol last night finished it off this morning. The patient has been drinking 1 bottle of vodka a day for the past 2 weeks. Patient has had multiple falls. Patient is a very poor historian and history is from EMS and the family. Family states they are concerned for his safety and his alcohol abuse and are wanting him admitted for withdrawal precautions and possible placement pt has a hx of anemia and I was asked to provide hemeonc consult ROS All systems reviewed and are negative except as per history of present illness. Medications Home Meds Unable to Obtain Active Prescriptions or Reported Meds Allergies Allergies: Coded Allergies: No Known Allergy (Unverified , 01/07/17) PMhx/Soc Hx Cardiac Disorders: Yes (HTN) ANEMIA Hx Alcohol Use: Yes Hx Substance Use: No Hx Tobacco Use: Yes Smoking Status: Current every day smoker FmHx Family History: No coronary disease Constitutional: chills, diaphoresis, disoriented, improved, poor po, requiring IVF, requiring O2, No febrile, No no complaints, No other Eyes: pain, redness, visual change, No discharge, No no complaints, No other ENT: congestion, dysphagia, sore throat, No bleeding, No discharge, No no complaints, No other, No pain Respiratory: cough, pain, shortness of breath, sputum, wheezing, No no complaints, No other, No pleuritic pain Cardiovascular: chest pain, lightheadedness, orthopenea, palpitations, paroxysmal nocturnal dyspnea, No edema, No no complaints, No other Gastrointestinal: diarrhea, flatus, nausea, pain, passing stool, No blood, No constipation, No decreased appetite, No no complaints, No other , No vomiting Genitourinary: dysuria, flank pain, No bleeding, No discharge, No hematuria, No no complaints, No other Musculoskeletal: back pain, bone/joint pain, neck pain, other (wounds and abrasions of the knees and face are healing slowly.), restricted range of motion, No no complaints, No swelling Skin: erythema, laceration, pruritis, rash, skin lesions, No bruising, No no complaints, No other Neurologic: confusion, dizziness, headache, No focal-weakness, No no complaints, No other, No seizure, No syncope Endocrine: dry skin, polydypsia, No no complaints, No other, No polyuria, No temp intolerance Lymphatic: No adenopathy, No lymphadema, No no complaints, No other, No tender nodes Psychological: anxiety, confusion, depression, No nl mood/affect, No no complaints, No other, No suicidal Social History Smoking Status: Current some day smoker Exam/Review of Systems Vital Signs Vitals Physical Exam Vitals Vital Signs Date Time Temp Pulse Resp B/P Pulse Ox O2 Delivery O2 Flow Rate FiO2 01/07/17 18:42 70 21 125/64 Room Air 01/07/17 14:07 97.6 78 18 106/53 98 Exam Physical Exam Const: Well-developed, well-nourished Head: Right temporal scalp contusion normocephalic] Eyes: Normal Conjunctiva, PERRLA, EOMI, normal sclera, no nystagmus ENT: Normal External Ears, Nose and Mouth, moist mucus membranes. Neck: Full range of motion. No meningismus, no lymphadenopathy. Resp: Clear to auscultation bilaterally, no wheezing, rhonchi, rales Cardio: Regular rate and rhythm, no murmurs, S1 S2 present Abd: Soft, non tender x 4, non distended. Normal bowel sounds, no guarding or rebound, no pulsitile abdominal masses or bruits Skin: No petechiae or rashes, no ecchymosis , no maculopapular rash Back: No midline or flank tenderness Ext: No cyanosis, or edema, FROM x 4, normal inspection, neurovascularly intact x 4, multiple scrapes and contusions and abrasions to his knees and shins Neur: Awake and alert, STR 5/5 x 4, sensation intact x 4, no focal findings, cerebellum intact Psych: Poor historian limited cooperation patient is having outbursts of yelling and bizarre statements such as "I need to find the door" t Results Laboratory Tests Test 01/07/17 14:40 Acetaminophen Level < 10.0ug/ml Acetone Level (Chemistry) NEGATIVE Alanine Aminotransferase (ALT/SGPT) 37IU/L Albumin 3.8g/dl Albumin/Globulin Ratio 1.11 Alkaline Phosphatase 169IU/L Anion Gap 19 Aspartate Amino Transf (AST/SGOT) 53IU/L Basophils # 0.110^3/ul Basophils % 0.7% Blood Urea Nitrogen 23mg/dl Calcium Level 8.6mg/dl Carbon Dioxide Level 21mmol/L Chloride Level 105mmol/L Creatinine 1.50mg/dl Direct Bilirubin 0.00mg/dl Eosinophils # 0.010^3/ul Eosinophils % 0.0% Ethyl Alcohol Level < 10.0mg/dl Globulin 3.40g/dl Glucose Level 113mg/dl Hematocrit 29.9% Hemoglobin 10.1g/dl Indirect Bilirubin 0.2mg/dl Lymphocytes # 1.710^3/ul Lymphocytes % 21.9% Mean Corpuscular Hemoglobin 33.4pg Mean Corpuscular Hemoglobin Concent 33.8g/dl Mean Corpuscular Volume 99.0fl Mean Platelet Volume 10.2fl Monocytes # 0.410^3/ul Monocytes % 5.2% Neutrophils # 5.410^3/ul Neutrophils % 71.7% Nucleated Red Blood Cells # 0.010^3/ul Nucleated Red Blood Cells % 0.0/100WBC Platelet Count 44978^3/UL Potassium Level 4.4mmol/L Red Blood Count 3.0210^6/ul Red Cell Distribution Width 13.5% Salicylates Level < 1.0mg/dl Sodium Level 141mmol/L Total Bilirubin 0.2mg/dl Total Protein 7.2g/dl White Blood Count 7.510^3/ul Current Medications Medications (Trade) Dose Ordered Sig/Nell Route PRN Reason Start Time Stop Time Status Last Admin Dose Admin Sodium Chloride 1,000 ml @ 1,000 mls/hr Q1H STAT IV 01/07/17 14:39 01/07/17 15:38 DC 01/07/17 14:58 Magnesium Sulfate/ Multivitamins/ Thiamine HCl/ Folic Acid/Sodium Chloride (Magnesium Sulfate/Mvi Adult/ Vitamin B1/Folic Acid/NS) 1,015.2 ml @ 500 mls/ hr Q2H2M STAT IV 01/07/17 14:39 01/07/17 16:40 DC 01/07/17 15:20 Lorazepam (Ativan) 1 mg ONCE ONCE IV 01/07/17 16:00 01/07/17 16:01 DC 01/07/17 16:01 Diazepam (Valium) 5 mg ONCE ONCE IV 01/07/17 16:30 01/07/17 16:31 DC 01/07/17 16:09 Procedures/MDM PROCEDURE: CT brain without contrast CLINICAL INDICATION: Altered level of consciousness TECHNIQUE: A CT of the brain was performed utilizing axial sections from the skull base through the vertex without contrast. Sagittal and coronal images were also reformatted. The exam CTDIvol = 48.08 mGy and DLP = 773.57 mGy-cm. COMPARISON: None available FINDINGS: No acute intracranial hemorrhage is identified. There is no mass effect or midline shift. No extra-axial fluid collection is seen. The ventricles and sulci are larger in size and configuration for the patient's provided age of 66 years consistent with advanced generalized atrophy. The density of the brain is within normal limits. Scott-white differentiation is preserved with no findings to suggest an acute ischemic infarct. The fourth ventricle is midline and there is no density alteration within the juan luis or cerebellum. Moderate atherosclerotic calcification of the vertebral and cavernous internal carotid arteries is noted. The osseous structures are unremarkable. The mastoid air cells and visualized paranasal sinuses are clear. RPTAT:HJJR IMPRESSION: Advanced atrophy for the patient's provided age with no evidence of acute intracranial abnormality or findings to explain the patient's provided history. Physician Nicole Date Time Electronically viewed and signed by Physician Nicole on 01/07/2017 18:20 JR/ CC: CLAY REDDY DO PROCEDURE: XR Chest. CLINICAL INDICATION: Chest pain, altered level of consciousness TECHNIQUE: Single frontal view of the chest was obtained. COMPARISON: None FINDINGS: The heart is within normal limits. The thoracic aorta is calcified. There are mild left lower lobe linear atelectatic changes. The lungs are otherwise clear. There is no pleural effusion or pneumothorax. RPTAT: AA IMPRESSION: Mild left lower lobe linear atelectatic changes. Calcified aorta consistent with atherosclerotic disease. .Nathan Pena MD, MD Date Time Electronically viewed and signed by .Nathan Pena MD, MD on 01/07/2017 15: 06 .S/ CC: CLAY REDDY DO EKG: Rate/Rhythm: Normal sinus rhythm heart rate 73, right axis deviation QRS, ST, QT: NORMAL OK, QRS, QT] Impression: NORMAL EKG Result Diagram: 01/09/17 1020 01/09/17 1020 CLIFTON OVIEDO MD Jan 10, 2017 19:03
--- NOTE | 2017-01-10 19:33 | CONS ---
Date/Time of Note Date/Time of Note DATE: 01/10/17 TIME: 12:31 Assessment/Plan Assessment/Plan Chief Complaint/Hosp Course ANEMIA N- CYTIC WITH N RDW PT WITH HX ANEMIA MONITOR BLOOD COUNT CLOSELY OBSERVE FOR BLEEDING AND HEMOLYSIS OK TO DC S/P Rubber alcohol poisoning COPD exacerbation Sleeplessness HTN out of control ALD S/P multiple falls with current fall and facial and kne injuries and bruises DYslipidemia Postcuncussion syndrome Nicotine addiction BPH AD with MD LBP Confabulations Weight loss Hearing impairment Multi[ple body abrasions and hematomas GERD Hx of pancreatitis Elevated D-dimer Problems: Consultation Date/Type/Reason Admit Date/Time Jan 09, 2017 at 13:35 Initial Consult Date 01.07.17 Type of Consultation: HEMEONC Referring Provider: VEE HUNTLEY MD 24 HR Interval Summary Free Text/Dictation ALL NOTED D/W STAFF NO BLEEDING FELLING BETTER Exam/Review of Systems Vital Signs Vitals Vital Signs Date Time Temp Pulse Resp B/P Pulse Ox O2 Delivery O2 Flow Rate FiO2 01/10/17 09:06 97.7 72 18 115/73 98 01/09/17 21:56 21 01/08/17 13:30 Room Air Intake and Output 01/09/17 01/09/17 01/10/17 15:00 23:00 07:00 Intake Total 480 ml 900 ml 840 ml Output Total 100 ml Balance 480 ml 900 ml 740 ml Exam Const: Well-developed, well-nourished Head: Right temporal scalp contusion normocephalic] Eyes: Normal Conjunctiva, PERRLA, EOMI, normal sclera, no nystagmus ENT: Normal External Ears, Nose and Mouth, moist mucus membranes. Neck: Full range of motion. No meningismus, no lymphadenopathy. Resp: Clear to auscultation bilaterally, no wheezing, rhonchi, rales Cardio: Regular rate and rhythm, no murmurs, S1 S2 present Abd: Soft, non tender x 4, non distended. Normal bowel sounds, no guarding or rebound, no pulsitile abdominal masses or bruits Skin: No petechiae or rashes, no ecchymosis , no maculopapular rash Back: No midline or flank tenderness Ext: No cyanosis, or edema, FROM x 4, normal inspection, neurovascularly intact x 4, multiple scrapes and contusions and abrasions to his knees and shins Neur: Awake and alert, STR 5/5 x 4, sensation intact x 4, no focal findings, cerebellum intact Results Result Diagram: 01/09/17 1020 01/09/17 1020 CLIFTON OVIEDO MD Jan 10, 2017 19:33
--- NOTE | 2017-01-10 19:35 | CONS ---
Date/Time of Note Date/Time of Note DATE: 01/08/17 TIME: 19:33 VK LE Assessment/Plan Assessment/Plan Chief Complaint/Hosp Course ANEMIA N- CYTIC WITH N RDW PT WITH HX ANEMIA MONITOR BLOOD COUNT CLOSELY OBSERVE FOR BLEEDING AND HEMOLYSIS PROB SOME EFFECT OF ETON S/P Rubber alcohol poisoning COPD exacerbation Sleeplessness HTN out of control ALD S/P multiple falls with current fall and facial and kne injuries and bruises DYslipidemia Postcuncussion syndrome Nicotine addiction BPH AD with MD LBP Confabulations Weight loss Hearing impairment Multi[ple body abrasions and hematomas GERD Hx of pancreatitis Elevated D-dimer Problems: Consultation Date/Type/Reason Admit Date/Time Jan 09, 2017 at 13:35 Initial Consult Date 01.07.17 Type of Consultation: HEMEON Referring Provider: VEE HUNTLEY MD 24 HR Interval Summary Free Text/Dictation ALL NOTED COUNT STABLE NO BLEEDING NO HEMOLYSIS Exam/Review of Systems Vital Signs Vitals Vital Signs Date Time Temp Pulse Resp B/P Pulse Ox O2 Delivery O2 Flow Rate FiO2 01/10/17 09:06 97.7 72 18 115/73 98 01/09/17 21:56 21 01/08/17 13:30 Room Air Intake and Output 01/09/17 01/09/17 01/10/17 15:00 23:00 07:00 Intake Total 480 ml 900 ml 840 ml Output Total 100 ml Balance 480 ml 900 ml 740 ml Exam Const: Well-developed, well-nourished Head: Right temporal scalp contusion normocephalic] Eyes: Normal Conjunctiva, PERRLA, EOMI, normal sclera, no nystagmus ENT: Normal External Ears, Nose and Mouth, moist mucus membranes. Neck: Full range of motion. No meningismus, no lymphadenopathy. Resp: Clear to auscultation bilaterally, no wheezing, rhonchi, rales Cardio: Regular rate and rhythm, no murmurs, S1 S2 present Abd: Soft, non tender x 4, non distended. Normal bowel sounds, no guarding or rebound, no pulsitile abdominal masses or bruits Skin: No petechiae or rashes, no ecchymosis , no maculopapular rash Back: No midline or flank tenderness Ext: No cyanosis, or edema, FROM x 4, normal inspection, neurovascularly intact x 4, multiple scrapes and contusions and abrasions to his knees and shins Neur: Awake and alert, STR 5/5 x 4, sensation intact x 4, no focal findings, cerebellum intact Results Result Diagram: 01/09/17 1020 01/09/17 1020 CLIFTON OVIEDO MD Jan 10, 2017 19:35
[2017-01-14 15:29] LABS: PSA, FREE 0.2 ng/mL
== END 2017-01-10 13:50 | disposition home or self-care (01) | DRG 918 ==
LOC: E/R 13:57 → PP2 18:56 → OBSVTOIN 01-09 13:35
PROVIDERS: ADMIT Family Medicine; ATTEND Family Medicine
DX: T51.2X4A Toxic effect of 2-Propanol, undetermined, initial encounter (principal); F10.921 Alcohol use, unspecified with intoxication delirium; J44.1 Chronic obstructive pulmonary disease with (acute) exacerbation; Y90.0 Blood alcohol level of less than 20 mg/100 ml; Y92.009 Unspecified place in unspecified non-institutional (private) residence as the place of occurrence of the external cause; F17.200 Nicotine dependence, unspecified, uncomplicated; D63.8 Anemia in other chronic diseases classified elsewhere; I10 Essential (primary) hypertension
CPT/HCPCS: 36415; 70450; 71010; 80053; 80306; 80307; 81003; 82010; 82140; 82150; 82306; 82378; 82607; 82728; 82746; 82962; 83540; 83615; 83690; 83735; 83930; 84153; 84154; 84443; 84560; 85025; 85378; 93005; 94640; 94664; 96372; 96374; 96375; 96376; G0378; C9113; J1650; J2060; J3360; J3411; J3475; J3480; J7030; J7042